=== PATIENT | female | born 1980 | race Caucasian/White ===

== ENCOUNTER → 2017-07-09 | Outpatient (CLI) | payer OTHER ==
--- NOTE | 2017-07-09 11:25 | Diagnostic Imaging Report ---
PROCEDURE: US abdomen complete. TECHNIQUE: Multiple real-time grayscale images were obtained over the abdomen in various projections. INDICATION: Abdominal pain and bloating. COMPARISON: None. FINDINGS: The liver appears unremarkable. Doppler imaging shows normal hepatopetal flow in the main portal vein. There is no biliary dilatation. Common bile duct measures about 4 mm. The gallbladder appears unremarkable. The pancreas appears normal. The spleen measures about 8.5 cm in length and appears unremarkable. The right kidney measures 11 cm in length and left kidney measures 9.7 cm in length, both appearing unremarkable. Abdominal aorta and inferior vena cava are unremarkable as visualized. There is no ascites or sonographic Holbrook's sign. IMPRESSION: No acute abnormalities demonstrated. Dictated on workstation # [id number]
== END ==
LOC: RAD 07:09
PROVIDERS: ATTEND Family Medicine
DX: R10.84 Generalized abdominal pain (principal); R14.0 Abdominal distension (gaseous)
CPT/HCPCS: 76700

== ENCOUNTER → 2018-12-28 | Outpatient (CLI) | payer OTHER ==
--- NOTE | 2018-12-28 14:46 | Diagnostic Imaging Report ---
INDICATION: Palpable lump in the upper outer left breast. COMPARISON: 10/25/2014. TECHNIQUE: 2D and 3D bilateral diagnostic mammography was performed with CAD. A BB marker was placed at the area of palpable abnormality in the upper outer left breast. FINDINGS: Both breasts are heterogeneously dense, limiting the sensitivity of mammography. There are benign-appearing nodules in the right breast outer portion. No mass or malignant appearing microcalcifications in the left breast are seen. There is some asymmetric tissue in the upper-outer left breast, likely parenchymal asymmetry. IMPRESSION: No suspicious mammographic findings are identified. Even so, sonographic interrogation of the area of palpable abnormality in the upper outer left breast is recommended and will be performed today. ACR BI-RADS Category 0: Incomplete. (Needs additional imaging evaluation). Result letter will be mailed to the patient. Note: At least 10% of breast cancer is not imaged by mammography. Dictated by: Dictated on workstation # [id number]
--- NOTE | 2018-12-28 19:18 | Diagnostic Imaging Report ---
INDICATION: Palpable lump left breast. Correlation is made with diagnostic mammogram earlier same day. FINDINGS: Sonographic interrogation of the area of palpable abnormality in upper-outer left breast was performed. There is heterogeneous breast tissue at this location. No discrete mass is identified apart from a tiny approximately 3 mm cyst at 2 o'clock location 10 cm from the nipple. No solid mass is seen. IMPRESSION: Essentially unremarkable left breast ultrasound. No suspicious abnormality is identified at the area of palpable abnormality. Continued close clinical and self breast exam is recommended to confirm stability of the palpable abnormality. ACR BI-RADS Category 2: Benign findings. Dictated by: Dictated on workstation # [id number]
== END ==
LOC: RAD 12:59
PROVIDERS: ATTEND Nurse Practitioner Family
DX: N63.21 Unspecified lump in the left breast, upper outer quadrant (principal)
CPT/HCPCS: 76642; 77066

== ENCOUNTER → 2021-01-01 | Outpatient (CLI) | payer OTHER ==
--- NOTE | 2021-01-01 13:48 | Diagnostic Imaging Report ---
INDICATION: Routine screening. COMPARISON: 12/28/2018 and 10/25/2014. TECHNIQUE: 2D and 3D bilateral screening mammography was performed with CAD. FINDINGS: Scattered fibroglandular densities are identified bilaterally. The parenchymal pattern is stable. No mass or malignant appearing microcalcifications are seen. The axillae are unremarkable. IMPRESSION: No mammographic features suspicious for malignancy are identified. ACR BI-RADS Category 1: Negative. Result letter will be mailed to the patient. Note: At least 10% of breast cancer is not imaged by mammography. Dictated by: Dictated on workstation # [id number]
== END ==
LOC: RAD 09:45
PROVIDERS: ATTEND Obstetrics & Gynecology
DX: Z12.31 Encounter for screening mammogram for malignant neoplasm of breast (principal)
CPT/HCPCS: 77063; 77067

== ENCOUNTER → 2022-01-26 | Outpatient (CLI) | payer OTHER ==
--- NOTE | 2022-01-26 12:02 | Diagnostic Imaging Report ---
INDICATION: Routine screening. Comparison is made with prior mammogram from 01/01/2021 and 12/28/2018. 2-D and 3-D bilateral screening mammography was performed with CAD. Both breasts are heterogeneously dense, limiting the sensitivity of mammography. The overall parenchymal pattern appears stable. No dominant mass or malignant-appearing microcalcifications are seen. Axillae are unremarkable. IMPRESSION: No mammographic features suspicious for malignancy are identified. ACR BI-RADS Category 1: Negative. Result letter will be mailed to the patient. Note: At least 10% of breast cancer is not imaged by mammography. BI-RADS Category 1 Dictated by: Dictated on workstation # [id number]
== END ==
LOC: RAD 09:15
DX: Z12.31 Encounter for screening mammogram for malignant neoplasm of breast (principal)
CPT/HCPCS: 77063; 77067

== ENCOUNTER → 2023-02-04 | Outpatient (CLI) | payer OTHER ==
--- NOTE | 2023-02-05 13:04 | Diagnostic Imaging Report ---
Indication: Bilateral digital 2-D and 3-D screening with CAD. The current study was also evaluated with a Computer Aided Detection (CAD) system. COMPARISON: 01/30, 12/30 and 12/28 FINDINGS: density 3. No breast mass, spiculated lesion, architectural distortion or changes to suggest malignancy. IMPRESSION: BI-RADS Category 1 ACR BI-RADS Category 1: Negative. Result letter will be mailed to the patient. Note: At least 10% of breast cancer is not imaged by mammography. Dictated by: Dictated on workstation # [id number]
== END ==
LOC: RAD 11:01
PROVIDERS: ATTEND Nurse Practitioner Family
DX: Z12.31 Encounter for screening mammogram for malignant neoplasm of breast (principal)
CPT/HCPCS: 77063; 77067